=== PATIENT | female | born 1980 | race Caucasian/White ===

== ENCOUNTER 2016-07-24 09:53 | Outpatient (CLI) | payer OTHER ==
[~2016-07-24] VITALS: Ht 162.6 cm; Wt 80.0 kg
[2016-07-24 10:20] LABS: URINE BLOOD (Dip) POC Trace-intact (NEGATIVE)
[2016-07-24 10:26] VITALS: RESP 19; Ht 162.6 cm; Wt 80.0 kg
--- NOTE | 2016-07-24 11:03 | RADRPT ---
PROCEDURE: US OB biophysical profile. Ultrasound cervix CLINICAL INDICATION: decreased movements, PTL TECHNIQUE: Multiple sonographic images of the pelvis were obtained. In addition, transvaginal мария ges of the cervix were obtained. The images were reviewed on a PACS workstation. COMPARISON: No prior studies are available for comparison. FINDINGS: The cervix measures 3.5 cm in length and is closed. There is a single viable intrauterine gestation. Cardiac activity is present with 138 beats per min cheesh-na. There is a vertex presentation. The placenta is posterior. There is no evidence of placental abruption. There is a normal amount of amniotic fluid with an TOPHER = 12.1 cm. Biophysical profile: movement 2/2 tone 2/2. breathing 2/2 TOPHER 2/2 Total 10/10 RPTAT: AA . IMPRESSION: Normal biophysical profile. Cervix measures 3.5 cm in length. . .Juan J Lyn MD, MD Date Time Electronically viewed and signed by .Juan J Lyn MD, MD on 07/24/2016 11:02 .S/
[2016-07-24] MEDS ORDERED: LACTATED RINGER'S 1,000 ML IV ONE (11:15)
[2016-07-24] MEDS ORDERED: TERBUTALINE 1 MG/ML INJ SC ONE (11:15)
--- NOTE | 2016-07-24 13:19 | PN ---
Date/Time of Note Date/Time of Note DATE: 07/24/16 TIME: 13:15 OB Subjective Subjective Subjective Patient is a 35-year-old 6 para 3 at 30+5 weeks of gestation Patient presents with complaint of contractions She reports positive movement, no leaking fluid, no vaginal bleeding Her care has been with Dr. Martinez OB Objective Objective Objective PROCEDURE: US OB biophysical profile. Ultrasound cervix CLINICAL INDICATION: decreased movements, PTL TECHNIQUE: Multiple sonographic images of the pelvis were obtained. In addition, transvaginal images of the cervix were obtained. The images were reviewed on a PACS workstation. COMPARISON: No prior studies are available for comparison. FINDINGS: The cervix measures 3.5 cm in length and is closed. There is a single viable intrauterine gestation. Cardiac activity is present with 138 beats per minute. There is a vertex presentation. The placenta is posterior. There is no evidence of placental abruption. There is a normal amount of amniotic fluid with an TOPHER = 12.1 cm. Biophysical profile: movement 2/2 tone 2/2. breathing 2/2 TOPHER 2/2 Total 10/10 RPTAT: AA . IMPRESSION: Normal biophysical profile. Cervix measures 3.5 cm in length. . .Juan J Lyn MD, MD Date Time Electronically viewed and signed by .Juan J Lyn MD, on 07/24/2016 11: 02 .S/ CC: KARLA MARTINEZ MD HEENT: WNL Heart: Rhythm Normal Lungs: Clear, Equal Abdomen: WNL Extremities: Normal Reflexes: Normal Cervical Dilatation: None Heart Rate: 140's Accelerations: Accelerations Present Decelerations: No Decelerations OB Assessment/Plan Other Assessment: Rule out labor Other plan: Patient received IV fluid Patient received 1 dose of terbutaline Cervical length within normal limits Biophysical profile 8 out of 8 UA negative Patient will be discharged home today She was instructed to follow-up with Dr. Martinez today VIKTORIA CALVIN MD July 24, 2016 13:19
--- NOTE | 2016-07-24 16:13 | TRIAGE ---
OB Triage Datetime Report Generated by CPN: 07/24/2016 16:13 Datetime: 07/24/2016 12:50 Stage of : OB Triage Maternal Assessment Level of Consciousness: Fully Conscious DTR's/Clonus: DTRs 1+ Headache: Denies Breath Sounds, Left: Clear and Equal Breath Sounds, Right: Clear and Equal Nausea/Vomiting: Denies RUQ Epigastric Pain: Denies Labor Evaluation Frequency: NONE Monitor Mode: External Resting Tone [place]: Relaxed Heart Rate FHR Baseline Rate: 130 Monitor Mode: External US Variability: Moderate 6-25 bpm Accelerations: 15X15 Decelerations: None Category: Category I Pain Assessment Pain Scale: 0 Pain Presence: None/Denies Pain Type: N/A Pain Goal: 3 Vaginal Exam Membrane Status: Intact Datetime: 07/24/2016 12:30 Stage of : OB Triage Maternal Assessment Level of Consciousness: Fully Conscious DTR's/Clonus: DTRs 1+ Headache: Denies Breath Sounds, Left: Clear and Equal Breath Sounds, Right: Clear and Equal Nausea/Vomiting: Denies RUQ Epigastric Pain: Denies Labor Evaluation Frequency: NONE Monitor Mode: External Resting Tone [place]: Relaxed Heart Rate FHR Baseline Rate: 130 Monitor Mode: External US Variability: Moderate 6-25 bpm Accelerations: 15X15 Decelerations: None Category: Category I Pain Assessment Pain Scale: 0 Pain Presence: None/Denies Pain Type: N/A Pain Goal: 3 Vaginal Exam Membrane Status: Intact Datetime: 07/24/2016 12:00 Maternal Assessment Level of Consciousness: Fully Conscious DTR's/Clonus: DTRs 1+ Headache: Denies Blurred Vision: No Respiratory Effort: Unlabored Breath Sounds, Left: Clear and Equal Breath Sounds, Right: Clear and Equal Nausea/Vomiting: Denies RUQ Epigastric Pain: Denies Facial Edema: None Labor Evaluation Frequency: NONE Monitor Mode: External Resting Tone [place]: Relaxed Heart Rate FHR Baseline Rate: 130 Monitor Mode: External US Variability: Moderate 6-25 bpm Accelerations: 15X15 Decelerations: None Category: Category I Pain Assessment Pain Scale: 0 Pain Presence: None/Denies Pain Type: N/A Pain Goal: 3 Pain Assessment Comments: PT STATES FEELIN GPRESSURE ON HER LOWER ABDOMEN BUT DENIES PAIN AT THSI TIME Vaginal Exam Membrane Status: Intact Datetime: 07/24/2016 11:28 Headache: Denies Blurred Vision: No RUQ Epigastric Pain: Denies Facial Edema: None Labor Evaluation Frequency: 5-6 Duration (sec)2399: 50 Heart Rate FHR Baseline Rate: 130 Monitor Mode: External US FHR Baseline Changes: No Baseline Change Variability: Moderate 6-25 bpm Accelerations: 15X15 Decelerations: None Category: Category I Pain Assessment Pain Scale: 4 Pain Presence: Intermittent Pain Type: Cramping; Contraction Pain Location: Abdomen Vaginal Exam Membrane Status: Intact Datetime: 07/24/2016 10:42 Maternal Assessment Level of Consciousness: Fully Conscious DTR's/Clonus: DTRs 1+ Headache: Denies Blurred Vision: No Respiratory Effort: Unlabored Breath Sounds, Left: Clear and Equal Breath Sounds, Right: Clear and Equal Nausea/Vomiting: Denies RUQ Epigastric Pain: Denies Facial Edema: None Labor Evaluation Frequency: 2-5 Monitor Mode: External Duration (sec)2399: 60-70 Quality: Mild Pattern: Normal: <= 5 Contractions in 10 Minutes Resting Tone [place]: Relaxed Heart Rate FHR Baseline Rate: 135 Monitor Mode: External US Variability: Moderate 6-25 bpm Accelerations: 15X15 Decelerations: None Category: Category I Pain Assessment Pain Scale: 6 Pain Presence: Intermittent Pain Type: Cramping Pain Location: Abdomen Pain Goal: 3 Pain Relief Measures: Comfort Measures Vaginal Exam Membrane Status: Intact Datetime: 07/24/2016 10:23 EGA: 30.5 Datetime: 07/24/2016 09:50 Stage of : OB Triage Time of Arrival: 07/24/2016 09:50 Arrived By: Ambulatory Arrived From: Home Chief Complaint: PT CAME IN C/O UC'S AND CRAMPING Movement: Present Contractions: Denies/Absent Rupture of Membranes: Denies Vaginal Discharge: Denies Recent Sexual Intercouse: Denies Abdominal Trauma: Not Applicable Additional Patient Complaints: NONE Time Provider Notified: 07/24/2016 09:50 Provider Notified: MICHELLE Initial Plan: CX LENGHT, BPP, TOPHER, UA, IV, TERBUTALINE
== END 2016-07-24 13:00 | disposition home or self-care (01) ==
LOC: OBT 09:53 → L-D 09:53 → OBT 13:00
PROVIDERS: ATTEND Obstetrics & Gynecology
DX: O36.8130 Decreased fetal movements, third trimester, not applicable or unspecified (principal); O62.4 Hypertonic, incoordinate, and prolonged uterine contractions; Z3A.30 30 weeks gestation of pregnancy
CPT/HCPCS: 76817; 76818; 81003; 87086; 96360; 96372; J3105; J7120; Z7500; G0463

== ENCOUNTER 2016-07-29 09:56 | Outpatient (CLI) | payer OTHER ==
[~2016-07-29] VITALS: Ht 162.6 cm; Wt 87.0 kg
[2016-07-29 10:29] VITALS: Ht 162.6 cm; Wt 87.0 kg
[2016-07-29 10:30] VITALS: BP 116/72; PULSE 100; RESP 20
--- NOTE | 2016-07-29 11:57 | RADRPT ---
PROCEDURE: OB ultrasound for biophysical profile CLINICAL INDICATION: . TECHNIQUE: Multiple sonographic images of the pelvis were obtained. Transabdominal view of the gr avid uterus are available for review. The images were reviewed on a PACS workstation. COMPARISON: 07/24/2016 FINDINGS: breathing movement = 2/2 tone = 2/2 motion = 2/2 TOPHER = 2/2 TOPHER = 15.3 cm Single live intrauterine with cardiac activity. Heart rate equals 159 bpm. IMPRESSION: 1. Single viable intrauterine gestation. 2. Biophysical profile = 8/8. 3. TOPHER = 15.3 cm. RPTAT: QQ .Willie House MD, Date Time Electronically viewed and signed by .Willie House MD, on 07/29/2016 11:56 .[place]/
--- NOTE | 2016-07-29 15:19 | TRIAGE ---
OB Triage Datetime Report Generated by CPN: 07/29/2016 15:19 Datetime: 07/29/2016 10:35 Time of Arrival: 07/29/2016 10:35 EGA: 31.3 Arrived By: Ambulatory Arrived From: Home Chief Complaint: DECREASED MOCEMENT Movement: Present Contractions: Denies/Absent Rupture of Membranes: Denies Vaginal Bleeding: None Vaginal Discharge: Denies Recent Sexual Intercouse: Denies Abdominal Trauma: Not Applicable Patient Complaints: Other Provider Notified: DR MARTINEZ Initial Plan: EFM,CALL DR MARTINEZ Datetime: 07/29/2016 10:33 Maternal Assessment Level of Consciousness: Fully Conscious DTR's/Clonus: DTRs 2+; No Clonus Headache: Denies Blurred Vision: No Respiratory Effort: Unlabored; Regular Rhythm; Equal Expansion Breath Sounds, Left: Clear and Equal Breath Sounds, Right: Clear and Equal Nausea/Vomiting: Denies RUQ Epigastric Pain: Denies Facial Edema: None Temperature Route: Axillary Fall Risk Assessment History of Falling: (0) No Secondary Diagnosis: (0) No Ambulatory Aid: (0) Bedrest/Nurse Assist IV Therapy: (0) No Gait: (0) Normal/Bedrest/Immobile Mental Status: (0) Oriented to Own Ability Fall Score: 0 Fall Risk Score Definition: No Risk: No action required Datetime: 07/29/2016 10:28 Labor Evaluation Frequency: NONE AT THIS TIME Pattern: Normal: <= 5 Contractions in 10 Minutes Resting Tone [place]: Relaxed Heart Rate FHR Baseline Rate: 135 Monitor Mode: External US FHR Baseline Changes: No Baseline Change Variability: Moderate 6-25 bpm Accelerations: 15X15 Decelerations: None Category: Category I Pain Assessment Pain Scale: 0 Pain Presence: None/Denies Vaginal Exam Membrane Status: Intact Datetime: 07/24/2016 10:23 EGA: 30.5
--- NOTE | 2016-08-10 10:05 | QN ---
Documentation Comment URI ACUTE KARLA MARTINEZ MD Aug 10, 2016 10:05
== END 2016-07-29 15:15 | disposition home or self-care (01) ==
LOC: OBT 09:56 → L-D 09:56 → OBT 15:15
PROVIDERS: ATTEND Obstetrics & Gynecology
DX: O26.893 Other specified pregnancy related conditions, third trimester (principal); J06.9 Acute upper respiratory infection, unspecified; Z3A.31 31 weeks gestation of pregnancy
CPT/HCPCS: 76818; Z7500; G0463

== ENCOUNTER 2016-09-02 15:26 | Outpatient (CLI) | payer OTHER ==
[~2016-09-02] VITALS: Ht 162.6 cm; Wt 87.8 kg
[2016-09-02] MEDS ORDERED: PRENAT PO (15:43)
[2016-09-02] MEDS ORDERED: FER325 PO (15:43)
[2016-09-02 15:44] VITALS: BP 108/73; PULSE 101; Ht 162.6 cm; Wt 87.8 kg
--- NOTE | 2016-09-02 16:34 | RADRPT ---
PROCEDURE: US OB biophysical profile. CLINICAL INDICATION: evaluation, and 10 liters TECHNIQUE: Multiple sonographic images of the pelvis were obtained. The images were reviewed on a PACS workstation. COMPARISON: No prior studies are available for comparison. FINDINGS: There is a single viable intrauterine gestation. Cardiac activity is present with 131 beats per min rachel. There is a vertex presentation. The placenta is fundal. There is no evidence of placental abruption. There is a normal amount of amniotic fluid with an TOPHER = 10.0 cm. Biophysical profile: movement 2/2 tone 2/2. breathing 2/2 TOPHER 2/2 Total 10/10 RPTAT: AA . IMPRESSION: Normal biophysical profile. Physician Jessie Date Time Electronically viewed and signed by Physician Jessie on 09/02/2016 16:33 /
--- NOTE | 2016-09-02 17:10 | TRIAGE ---
OB Triage Datetime Report Generated by CPN: 09/02/2016 17:10 Datetime: 09/02/2016 16:57 Vaginal Exam Dilatation (cms): 0.0 Station: -3 Exam By: khemani Vaginal Bleeding: None Cervix, Position: Posterior Datetime: 09/02/2016 16:30 Stage of : OB Triage Maternal Assessment Level of Consciousness: Fully Conscious Labor Evaluation Frequency: NONE Monitor Mode: External Resting Tone [place]: Relaxed Heart Rate FHR Baseline Rate: 135 Monitor Mode: External US Variability: Moderate 6-25 bpm Accelerations: 15X15 Decelerations: None Pain Assessment Pain Scale: 5 Pain Presence: Constant Pain Type: Pressure Pain Location: Abdomen Pain Goal: 3 Pain Relief Measures: Comfort Measures Membrane Status: Intact Vaginal Bleeding: None Datetime: 09/02/2016 15:42 Assessment Type: Triage Maternal Assessment Level of Consciousness: Fully Conscious DTR's/Clonus: DTRs 2+; No Clonus Headache: Denies Blurred Vision: No Respiratory Effort: Unlabored; Regular Rhythm; Equal Expansion Breath Sounds, Left: Clear and Equal Breath Sounds, Right: Clear and Equal Nausea/Vomiting: Denies RUQ Epigastric Pain: Denies Lower Extremities Edema: None Degree: None Upper Extremities Edema: None Degree: None Facial Edema: None Fall Risk Assessment History of Falling: (0) No Secondary Diagnosis: (0) No Ambulatory Aid: (0) Bedrest/Nurse Assist IV Therapy: (0) No Gait: (0) Normal/Bedrest/Immobile Mental Status: (0) Oriented to Own Ability Fall Score: 0 Fall Risk Score Definition: No Risk: No action required Datetime: 09/02/2016 15:39 Time of Arrival: 09/02/2016 15:20 EGA: 36.3 Arrived By: Ambulatory Arrived From: Home Chief Complaint: PT HERE C/O UC'S SINCE 699 Movement: Present Rupture of Membranes: Denies Vaginal Discharge: Denies Recent Sexual Intercouse: Denies Abdominal Trauma: Not Applicable Additional Patient Complaints: NST/BPP/SVE Provider Notified: GHAYOORI Datetime: 09/02/2016 15:35 Monitor Mode: External Monitor Mode: External US Datetime: 07/29/2016 10:35 EGA: 31.3 Datetime: 07/29/2016 10:33 Fall Score: 0 Fall Risk Score Definition: No Risk: No action required Datetime: 07/24/2016 10:23 EGA: 30.5
--- NOTE | 2016-09-02 17:11 | PN ---
Triage Information Date/Time Weeks of Gestation 36+ : 2 Para: 1 Diabetes: none Objective Vital Signs Date Time Temp Pulse Resp B/P Pulse Ox O2 Delivery O2 Flow Rate FiO2 09/02/16 15:44 98.2 101 108/73 96 Room Air Heart Rate: 140's Exam No Cervical change CX L/C/Post NST reassuring [place] No CTXs Assessment/Plan If any CTXs any LOF any VB any decreased movments ,she will need to come back to Hospital immediately Patient is discharged with precaution. CELINA TELLEZ M.D. Sep 02, 2016 17:11
== END 2016-09-02 17:19 | disposition home or self-care (01) ==
LOC: OBT 15:26 → L-D 15:27 → OBT 17:19
PROVIDERS: ATTEND Obstetrics & Gynecology
DX: O62.9 Abnormality of forces of labor, unspecified (principal); Z3A.36 36 weeks gestation of pregnancy
CPT/HCPCS: 76818; Z7500; G0463

== ENCOUNTER 2016-09-11 20:01 | Outpatient (CLI) | payer OTHER ==
[~2016-09-11] VITALS: Ht 162.6 cm; Wt 90.0 kg
[~2016-09-11 20:01] MED LIST: FER325 PO; PRENAT PO
[2016-09-11 20:47] VITALS: Ht 162.6 cm; Wt 90.0 kg
[2016-09-11 20:48] VITALS: BP 112/74; PULSE 100; RESP 18
--- NOTE | 2016-09-11 21:25 | RADRPT ---
PROCEDURE: US OB. CLINICAL INDICATION: labor , pain TECHNIQUE: Transabdominal views of the pelvis are available for review. COMPARISON: No prior studies are available for comparison. FINDINGS: There is a single intrauterine gestation in a vertex position. The heart rate is noted at 152 bpm. The placenta is fundal. The TOPHER measures 14.8 cm. RPTAT: AA IMPRESSION: Normal TOPHER. .Juan J Lyn MD, MD Date Time Electronically viewed and signed by .Juan J Lyn MD, on 09/11/2016 21:25 .S/
[2016-09-11 22:08] LABS: ADD SCAN DIFF NO
[2016-09-11 22:11] LABS: BASOPHILS % 0.2 % (0.0-2.0); EOSINOPHILS # 0.1 10^3/ul (0.0-0.5); EOSINOPHILS % 1.6 % (0.0-7.0); HEMATOCRIT 34.1 % (37.0-47.0); HEMOGLOBIN 11.6 g/dl (12.0-16.0); LYMPHOCYTES # 0.9 10^3/ul (0.8-2.9); LYMPHOCYTES % 14.8 % (15.0-51.0); MEAN CORPUSCULAR HEMOGLOBIN 29.4 pg (29.0-33.0); MEAN CORPUSCULAR VOLUME 86.3 fl (82.0-101.0); MEAN PLATELET VOLUME 10.4 fl (7.4-10.4); MONOCYTE # 0.4 10^3/ul (0.3-0.9); MONOCYTES % 5.9 % (0.0-11.0); NEUTROPHIL # 4.8 10^3/ul (1.6-7.5); NEUTROPHILS % 76.9 % (39.0-77.0); PLATELET COUNT 241 10^3/UL (140-415); RED BLOOD COUNT 3.95 10^6/ul (4.20-5.40); RED CELL DISTRIBUTION WIDTH 13.5 % (11.5-14.5); WHITE BLOOD COUNT 6.3 10^3/ul (4.8-10.8)
[2016-09-11 22:28] LABS: INR 0.96; PROTIME 12.8 Sec (12.2-14.2)
[2016-09-11 22:29] LABS: PARTIAL THROMBOPLASTIN TIME 26.6 Sec (25.0-35.0)
[2016-09-11 22:49] LABS: ALBUMIN 3.9 g/dl (3.3-4.9); ALBUMIN/GLOBULIN RATIO 1.25; BILIRUBIN,INDIRECT 0.2 mg/dl (0-1.1); BILIRUBIN,TOTAL 0.2 mg/dl (0.2-1.3); CREATININE 0.77 mg/dl (0.44-1.00); POTASSIUM 3.8 mmol/L (3.5-5.1); URIC ACID 6.3 mg/dl (3.1-7.9)
[2016-09-11 23:01] LABS: ADD UMIC YES; UR ASCORBIC ACID NEGATIVE (NEGATIVE); UR BACTERIA FEW /HPF (NONE SEEN); UR BILIRUBIN (Dip) NEGATIVE (NEGATIVE); UR BLOOD (Dip) NEGATIVE (NEGATIVE); UR CLARITY CLOUDY (CLEAR); UR COLOR YELLOW (YELLOW); UR GLUCOSE (Dip) NEGATIVE (NEGATIVE); UR KETONES (Dip) NEGATIVE (NEGATIVE); UR LEUKOCYTE ESTERASE (Dip) 3+ Leu/ul (NEGATIVE); UR MUCUS FEW /HPF (NONE SEEN); UR NITRITE (Dip) NEGATIVE (NEGATIVE); UR RBC 2 /HPF (0-5); UR SPECIFIC GRAVITY (Dip) 1.013 (1.003-1.030); UR SQUAMOUS EPITHELIAL CELL MANY /HPF (FEW); UR TOTAL PROTEIN (Dip) NEGATIVE (NEGATIVE); UR UROBILINOGEN (Dip) NEGATIVE (NEGATIVE)
--- NOTE | 2016-09-12 06:27 | TRIAGE ---
OB Triage Datetime Report Generated by CPN: 09/12/2016 06:27 Datetime: 09/12/2016 00:48 Stage of : OB Triage Time of Arrival: 09/11/2016 20:00 EGA: 37.5 Arrived By: Wheelchair Arrived From: Home Chief Complaint: SWOLLEN FEET Movement: Present Contractions: Denies/Absent Rupture of Membranes: Denies Vaginal Bleeding: None Vaginal Discharge: Denies Recent Sexual Intercouse: Denies Abdominal Trauma: Not Applicable Patient Complaints: None Time Provider Notified: 09/11/2016 20:53 Provider Notified: DR RESTREPO Initial Plan: CALL RICHARD TEAGUE Datetime: 09/12/2016 00:30 Stage of : OB Triage Datetime: 09/12/2016 00:20 Vaginal Exam Dilatation (cms): 0.0 Effacement (%): 0 Station: -3 Exam By: Brenda AKINS RN Vaginal Bleeding: None Cervix, Consistency: Firm Cervix, Position: Posterior Datetime: 09/11/2016 23:55 Labor Evaluation Frequency: IRREGULAR Monitor Mode: External Duration (sec)2399: 60-120 Quality: Mild Pattern: Normal: <= 5 Contractions in 10 Minutes Resting Tone [place]: Relaxed Heart Rate FHR Baseline Rate: 125 Monitor Mode: External US FHR Baseline Changes: No Baseline Change Variability: Moderate 6-25 bpm Accelerations: 15X15 Decelerations: None Category: Category I Datetime: 09/11/2016 23:00 Labor Evaluation Frequency: IRREGULAR Monitor Mode: External Duration (sec)2399: 60-120 Quality: Mild Pattern: Normal: <= 5 Contractions in 10 Minutes Resting Tone [place]: Relaxed Heart Rate FHR Baseline Rate: 125 Monitor Mode: External US FHR Baseline Changes: No Baseline Change Variability: Moderate 6-25 bpm Accelerations: 15X15 Decelerations: None Category: Category I Datetime: 09/11/2016 22:55 Stage of : OB Triage Datetime: 09/11/2016 22:00 Labor Evaluation Frequency: 0 Monitor Mode: External Heart Rate FHR Baseline Rate: 135 Monitor Mode: External US FHR Baseline Changes: No Baseline Change Variability: Moderate 6-25 bpm Accelerations: 15X15 Decelerations: None Category: Category I Datetime: 09/11/2016 21:06 Stage of : OB Triage Datetime: 09/11/2016 21:05 Stage of : OB Triage Datetime: 09/11/2016 21:00 Stage of : OB Triage Labor Evaluation Frequency: X1 Monitor Mode: External Duration (sec)2399: 60 Resting Tone [place]: Relaxed Contraction Comments: PT DENIES FEELING UC'S OR CRAMPING Heart Rate FHR Baseline Rate: 125 Monitor Mode: External US Variability: Moderate 6-25 bpm Accelerations: 15X15 Decelerations: None Category: Category I Pain Assessment Pain Scale: 0 Pain Presence: None/Denies Pain Type: N/A Datetime: 09/11/2016 20:57 Time of Arrival: 09/11/2016 20:00 EGA: 37.5 Arrived By: Wheelchair Chief Complaint: SWELLING OF FEET Movement: Present Contractions: Irregular Contractions: X1 Rupture of Membranes: Denies Vaginal Bleeding: None Vaginal Discharge: Denies Recent Sexual Intercouse: Denies Abdominal Trauma: Not Applicable Patient Complaints: Other Time Provider Notified: 09/11/2016 20:53 Provider Notified: DR. GARCIA Initial Plan: EFM, CALL MD, PIH PANEL, U/S OB TOPHER Datetime: 09/11/2016 20:53 Stage of : OB Triage Datetime: 09/11/2016 20:45 Stage of : OB Triage Datetime: 09/11/2016 20:36 Contraction Comments: APPLIED Comments: APPLIED Datetime: 09/11/2016 20:30 Stage of : OB Triage Time Provider Notified: 09/11/2016 20:53 Maternal Assessment Level of Consciousness: Fully Conscious DTR's/Clonus: DTRs 2+; No Clonus Headache: Denies Blurred Vision: No Respiratory Effort: Unlabored; Regular Rhythm; Equal Expansion Breath Sounds, Left: Clear and Equal Breath Sounds, Right: Clear and Equal Nausea/Vomiting: Denies RUQ Epigastric Pain: Denies Lower Extremities Edema: Bilateral Lower Extremities Degree: 1+ Upper Extremities Edema: Bilateral Upper Extremities Degree: None Facial Edema: None Temperature Route: Oral Fall Risk Assessment History of Falling: (0) No Secondary Diagnosis: (0) No Ambulatory Aid: (0) Bedrest/Nurse Assist IV Therapy: (0) No Gait: (0) Normal/Bedrest/Immobile Mental Status: (0) Oriented to Own Ability Fall Score: 0 Fall Risk Score Definition: No Risk: No action required Pain Assessment Pain Scale: 0 Pain Presence: None/Denies Pain Type: N/A Datetime: 09/02/2016 15:42 Fall Score: 0 Fall Risk Score Definition: No Risk: No action required Datetime: 09/02/2016 15:39 EGA: 36.3 Datetime: 07/29/2016 10:35 EGA: 31.3 Datetime: 07/29/2016 10:33 Fall Score: 0 Fall Risk Score Definition: No Risk: No action required Datetime: 07/24/2016 10:23 EGA: 30.5
--- NOTE | 2016-09-19 03:45 | HP ---
DATE OF ADMISSION: 09/11/2016 DATE OF DICTATION: 09/16/2016, late entry note. CHIEF COMPLAINT: Swelling of feet. HISTORY OF PRESENT ILLNESS: The patient is 35-year-old, , para III, 0, II, III, with single intrauterine at 37 weeks and 5 days, complaining of swelling of feet. She states good movement. She denies nausea, vomiting, shortness of breath, chest pain, headache, blurry vision. Leakage of fluid, vaginal bleeding, urinary or GI symptoms. PHYSICAL EXAMINATION: GENERAL: The patient is in no acute distress. She has appropriate mood and affect. VITAL SIGNS: Blood pressure 112/72, pulse rate 83, respiratory rate 18, temperature 98.1. O2 saturation is 98 percent. HEART: Regular rhythm and rate. No murmur. LUNGS: Clear to auscultation bilaterally. ABDOMEN: Soft. Nontender. No rebound or guarding. Uterine fundal height is 38 weeks. BACK: No CVA tenderness bilateral. EXTREMITIES: 2+ edema. No varicose veins, thigh or calf tenderness. Homans' sign is negative bilaterally. ASSESSMENT AND PLAN: The patient is a 35-year-old , Para III, 0, II, III with single intrauterine at 37 weeks and 5 days, with swelling of the feet. Her blood pressure was normal. All her blood pressures during triage observation were normal, the labs performed were normal. Ultrasound performed revealed a single intrauterine in cephalic presentation. TOPHER of 14.8. Signs and symptoms of early labor preeclampsia, kick count was discussed with the patient. She expressed understanding, all of her questions were answered. She is discharged home in stable condition. Follow up with her primary [facility]. Dictated By: Bassam Pretty MD /[email or web address] /Document#: [id number] EDWIN
== END 2016-09-12 02:53 | disposition home or self-care (01) ==
LOC: OBT 20:01 → L-D 20:01 → OBT 09-12 02:53
PROVIDERS: ATTEND Obstetrics & Gynecology
DX: O26.893 Other specified pregnancy related conditions, third trimester (principal); Z3A.37 37 weeks gestation of pregnancy; R22.43 Localized swelling, mass and lump, lower limb, bilateral
CPT/HCPCS: 36415; 76815; 80053; 81001; 84560; 85025; 85384; 85610; 85730; Z7500; G0463

== ENCOUNTER 2016-09-19 05:40 | Inpatient (IN) | payer OTHER ==
[2016-09-19] VITALS (7 sets, daily range): BP systolic 112–123; BP diastolic 60–83; PULSE 80–125; RESP 18; Ht 162.6 cm; Wt 91.1 kg
[~2016-09-19] VITALS: Ht 162.6 cm; Wt 91.1 kg
[2016-09-19 06:41] LABS: ADD SCAN DIFF NO
[2016-09-19 06:52] LABS: BASOPHILS % 0.1 % (0.0-2.0); EOSINOPHILS # 0.1 10^3/ul (0.0-0.5); EOSINOPHILS % 1.5 % (0.0-7.0); HEMOGLOBIN 11.8 g/dl (12.0-16.0); LYMPHOCYTES # 1.1 10^3/ul (0.8-2.9); LYMPHOCYTES % 16.7 % (15.0-51.0); MEAN CORPUSCULAR HEMOGLOBIN 29.9 pg (29.0-33.0); MEAN CORPUSCULAR HGB CONC 34.7 g/dl (32.0-37.0); MEAN CORPUSCULAR VOLUME 86.1 fl (82.0-101.0); MEAN PLATELET VOLUME 9.8 fl (7.4-10.4); MONOCYTE # 0.4 10^3/ul (0.3-0.9); MONOCYTES % 6.6 % (0.0-11.0); NEUTROPHILS % 74.5 % (39.0-77.0); PLATELET COUNT 240 10^3/UL (140-415); RED BLOOD COUNT 3.95 10^6/ul (4.20-5.40); RED CELL DISTRIBUTION WIDTH 13.4 % (11.5-14.5); WHITE BLOOD COUNT 6.7 10^3/ul (4.8-10.8)
[2016-09-19] MEDS ORDERED: CEFAZOLIN 2 GM/50 ML (PMX) 50 ML IV SCH (07:00)
[2016-09-19] MEDS ORDERED: CARBOPROST 250 MCG INJ IM PRN ×2 (07:00→13:00)
[2016-09-19] MEDS ORDERED: OXYTOCIN 30 UNITS/LR 500 ML IV PRN ×2 (07:00→13:00)
[2016-09-19] MEDS ORDERED: METHYLERGONOVINE 0.2 MG INJ IM PRN ×2 (07:00→13:00)
[2016-09-19] MEDS ORDERED: MISOPROSTOL 200 MCG TAB PR PRN ×2 (07:00→13:00)
[2016-09-19] MEDS ORDERED: OXYTOCIN 30 UNITS/LR 500 ML IV SCH (07:00)
[2016-09-19] MEDS ORDERED: LACTATED RINGER'S 1,000 ML IV ONE (07:00)
[2016-09-19 07:05] LABS: INR 0.86; PARTIAL THROMBOPLASTIN TIME 25.7 Sec (25.0-35.0); PROTIME 11.7 Sec (12.2-14.2); PT RATIO 0.9
[2016-09-19] MEDS ORDERED: morphine SULFATE/PF (10 MG/10 ML) INJ ONE (07:49)
[2016-09-19] MEDS ORDERED: OXYTOCIN 30 UNITS/LR 500 ML IV ONE (07:50)
[2016-09-19] MEDS ORDERED: FENTAnyl 50 MCG/ML VIAL ONE (07:50)
[2016-09-19] MEDS ORDERED: KETOROLAC 30 MG INJ IV PRN (08:00)
[2016-09-19] MEDS ORDERED: ONDANSETRON 4 MG INJ IV PRN (08:00)
[2016-09-19] MEDS ORDERED: DIPHENHYDRAMINE 50 MG INJ IV PRN (08:00)
[2016-09-19] MEDS ORDERED: NALOXONE (0.4 MG/ML) INJ IV PRN (08:00)
[2016-09-19] MEDS ORDERED: ZOLPIDEM 5 MG TAB PO PRN (08:00)
[2016-09-19] MEDS ORDERED: HYDROmorphONE 1 MG/ML SYG IV PRN ×2 (08:00)
[2016-09-19] MEDS ORDERED: PHENYLephrine (100 MCG/ML) 5ML SYG ONE (08:11)
[2016-09-19] MEDS ORDERED: DEXAMETHASONE 4 MG/ML 1 ML INJ ONE (08:13)
--- NOTE | 2016-09-19 10:11 | HP ---
Date/Time of Note Date/Time of Note DATE: 09/19/16 TIME: 10:02 OB - History Hx of Present Free Text/Dictation 35 y.o G^ at 39weeks with X2 vaginal delivery and x1 section here for repeat esarean section electively had unevenful course. consent for surgery obtained after fully informed the poss complication s minor to serious from sugery and aneshesia. patient agreed to receive surgical procedure after fully understand. repeat c/s was prepared Chief Complaint: for repeat section Estimated Due Date: Sep 27, 2016 : 6 Para: 3 Spontaneous : 2 Therapeutic : 0 Care: Good Care Ultrasounds: Normal mid trimester US Obstetrical Complications: None Medical Complications: None Past Family/Social History * Past Medical, Surgical, Family and Obstetric Histories reviewed from chart. Blood Type: O+ Rubella: immune RPR/VDRL: Negative GBS Status: Negative HBsAG: Negative OB Admission Exam Vital Signs Vital Signs Vital Signs Date Time Temp Pulse Resp B/P Pulse Ox O2 Delivery O2 Flow Rate FiO2 09/19/16 06:36 97.9 94 18 112/78 Room Air Physical Exam HEENT: WNL Heart: Rhythm Normal Lungs: Clear, Equal Abdomen: WNL Extremities: Normal Reflexes: Normal Cervical Dilatation: other Station: Other Membranes: Intact Amniotic Fluid: Unevaluable Heart Rate: 140's Accelerations: Accelerations Present Decelerations: No Decelerations Varibility: Moderate Intensity: Mild Last 72 hours Lab Results CBC & BMP 09/19/16 06:20 OB Assessment/Plan Reason for admission: section Plan: Section KARLA MARTINEZ MD Sep 19, 2016 10:10
[2016-09-19] MEDS ORDERED: LANOLIN 7 GM TUBE TOP PRN (13:00)
[2016-09-19] MEDS: LACTATED RINGER'S 1,000 ML IV SCH (15:24)
[2016-09-19] MEDS: SENNA/DOCUSATE NA (8.6MG/50MG) TAB PO SCH (21:33)
[2016-09-20] MEDS: LACTATED RINGER'S 1,000 ML IV SCH ×2 (02:01→07:30)
[2016-09-20 03:45] VITALS: BP 100/58; PULSE 96; RESP 18
[2016-09-20] MEDS: IBUPROFEN 600 MG TAB PO SCH ×3 (06:00→17:53)
[2016-09-20 08:00] VITALS: BP 121/71; PULSE 76; RESP 18
[2016-09-20] MEDS ORDERED: ONDANSETRON 4 MG INJ IV PRN (08:05)
[2016-09-20] MEDS ORDERED: DIPHENHYDRAMINE 50 MG INJ IV PRN (08:05)
[2016-09-20] MEDS ORDERED: OXYCODONE/ACETAMINOPHEN (5/325) TAB PO PRN (08:05)
[2016-09-20 08:32] LABS: ADD SCAN DIFF NO
[2016-09-20 08:38] LABS: BASOPHILS % 0.1 % (0.0-2.0); EOSINOPHILS # 0.1 10^3/ul (0.0-0.5); EOSINOPHILS % 0.9 % (0.0-7.0); HEMOGLOBIN 9.5 g/dl (12.0-16.0); LYMPHOCYTES % 11.6 % (15.0-51.0); MEAN CORPUSCULAR HEMOGLOBIN 29.5 pg (29.0-33.0); MEAN CORPUSCULAR HGB CONC 33.9 g/dl (32.0-37.0); MEAN PLATELET VOLUME 9.8 fl (7.4-10.4); MONOCYTE # 0.5 10^3/ul (0.3-0.9); MONOCYTES % 5.4 % (0.0-11.0); NEUTROPHIL # 7.2 10^3/ul (1.6-7.5); NEUTROPHILS % 81.2 % (39.0-77.0); PLATELET COUNT 179 10^3/UL (140-415); RED BLOOD COUNT 3.22 10^6/ul (4.20-5.40); RED CELL DISTRIBUTION WIDTH 13.6 % (11.5-14.5); WHITE BLOOD COUNT 8.9 10^3/ul (4.8-10.8)
--- NOTE | 2016-09-20 09:58 | OPR ---
Operative Report Planned Procedure Procedure date Sep 19, 2016 Procedure(s) repeat low transverse section Performed by: KARLA MARTINEZ MD Assisting provider: THERON TORRES MD Anesthesiologist: KIM DAMIAN Pre-procedure diagnosis IUP 39w with previous section Anesthesia Type: spinal Procedure Description Under satisfactory [] anesthesia, the patient was prepped and draped and placed in a supine position, tilted to the left. Pfannenstiel incision was made,along the previous incisional scar, scar tissue was excised, carried through the subcutaneous tissue. Bleeders brought under control with electrocautery. Fascia incised to the length of the incision. Rectus muscles from the fascia , divided midline. Peritoneum exposed, entered through a transverse incision. Exploration of abdomen revealed gravid uterus. transverse incision was made on the uterine muscle layer by layer ,. Amniotic sac ruptured. [] clear amniotic fluid noted. [] Nasal oropharyngeal suction was performed. The baby was handed to the team for immediate attention after delayed cord clamping.. The placenta was delivered manually intact, uterus was exteriolized, . Uterine cavity was cleaned with wet sponge and drainage established. Uterus closed in 2 layers using [#1 ch cat gut and 0 ch cat gut] in continuous fashion. Peritoneal cavity irrigated with warm saline.uterus was relocated into the abdominal cavity, uterine incision was rechecked for bleeder Sponge, needle and instrument count reported to be correct. Abdominal peritoneum closed [id number] cat gut [] continuously. Rectus muscle approximated with [0ch cat gut ] . Fascia closed with #1 vicryl, subcut closed )) plain ], and skin closed with insorb Estimated blood loss []600mL. Urine bag contained 200[]mL of urine Post-Procedure Post-procedure diagnosis delivered normal male Findings: Live Baby [, Apgars [8] and [9], weight [], position []lot, [] presentation [vx] cord. Specimen removed: No Complications: None Pt Condition post procedure: stable Disposition: PACU Physician Certification I, the undersigned physician, hereby certify that I have discussed the procedure described in this consent form with this patient (or the patient's legal patient financial representative), including: * The risk and benefits of the procedure; * Any adverse reactions that may reasonably be expected to occur; * Any alternative efficacious methods of treatment which may be medically viable ; * The potential problems that may occur during recuperation; * Potential for blood transfusion and associated risks/benefits; and * Any research or economic interest I may have regarding this treatment. I further certify that the patient/legally responsible person was encouraged to ask question and that all questions were answered. KARLA MARTINEZ MD Sep 20, 2016 09:57
--- NOTE | 2016-09-20 10:43 | PN ---
Date/Time of Note Date/Time of Note DATE: 09/20/16 TIME: 10:39 OB Subjective Subjective Subjective passing flatus decide not to breast feeding OB Objective Objective Objective vss afebrile abdomen soft wound dry calf neg for tenderness HEENT: WNL Heart: Rhythm Normal Lungs: Clear, Equal Abdomen: WNL Extremities: Normal Reflexes: Normal OB Assessment/Plan Other Assessment: s/p #1 rc/s Other plan: as ordered KARLA MARTINEZ MD Sep 20, 2016 10:42
[2016-09-20] MEDS: SENNA/DOCUSATE NA (8.6MG/50MG) TAB PO SCH ×2 (10:50→21:16)
[2016-09-20] MEDS: OXYCODONE/ACETAMINOPHEN (5/325) TAB PO PRN (10:51)
[2016-09-20 16:00] VITALS: BP 118/82; PULSE 106; RESP 18
[2016-09-20 19:45] VITALS: BP 112/73; PULSE 101; RESP 18
[2016-09-20] MEDS ORDERED: ZOLPIDEM 5 MG TAB PO PRN (21:00)
[2016-09-21] MEDS: IBUPROFEN 600 MG TAB PO SCH ×5 (00:22→23:38)
[2016-09-21 04:30] VITALS: BP_SYST 117; BP_SYST 97; BP_DIAS 55; BP_DIAS 70; PULSE 85; PULSE 92; RESP 18
--- NOTE | 2016-09-21 07:54 | PN ---
Date/Time of Note Date/Time of Note DATE: 09/21/16 TIME: 07:51 OB Subjective Subjective Subjective no specific c/o OB Objective Objective Objective vss afebrile abdomen soft wound dry lochia min calf no tenderness OB Assessment/Plan Other Assessment: stable POrc/s#2 Other plan: d/s home in am KARLA MARTINEZ MD Sep 21, 2016 07:53
[2016-09-21 08:45] VITALS: BP 93/51; PULSE 80; RESP 18
[2016-09-21] MEDS: SENNA/DOCUSATE NA (8.6MG/50MG) TAB PO SCH ×2 (10:26→20:35)
[2016-09-21 16:30] VITALS: BP 124/79; PULSE 96; RESP 16
[2016-09-21] MEDS: FERROUS GLUCONATE (EC) 325 MG TAB PO SCH (17:17)
[2016-09-21 19:45] VITALS: BP 107/77; PULSE 94; RESP 18
[2016-09-22] MEDS: OXYCODONE/ACETAMINOPHEN (5/325) TAB PO PRN ×2 (03:26→15:04)
[2016-09-22 03:30] VITALS: BP 93/66; PULSE 73; RESP 18
[2016-09-22] MEDS: IBUPROFEN 600 MG TAB PO SCH ×3 (05:59→18:00)
[2016-09-22 08:00] VITALS: BP 92/70; PULSE 68; RESP 19
[2016-09-22] MEDS: SENNA/DOCUSATE NA (8.6MG/50MG) TAB PO SCH (09:00)
[2016-09-22] MEDS ORDERED: DIPHTH/TET/ACEL PERTUSS (ADULT) 0.5 ML VIAL IM* ONE (09:00)
[2016-09-22] MEDS: FERROUS GLUCONATE (EC) 325 MG TAB PO SCH (10:13)
--- NOTE | 2016-09-22 16:13 | DS ---
Date/Time of Note Date/Time of Note DATE: 09/22/16 TIME: 16:11 Obstetrical Discharge Record Final Diagnosis Final Diagnosis: Term delivered Section Section: Repeat Complications Augmentation: No Induction: No Condition on Discharge Physical Assessment Last Vitals: vss afebrile Voiding: Yes Breast: Soft, non-tender Fundus: Firm Abdomen and Incision: abdomen soft wound dry Calf Tenderness: No Patient Condition: Stable KARLA MARTINEZ MD Sep 22, 2016 16:12
--- NOTE | 2016-09-22 16:18 | PD.PPDC ---
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
== END 2016-09-22 18:35 | disposition home or self-care (01) | DRG 766 ==
LOC: L-D 05:40 → PP1 12:51
PROVIDERS: ADMIT Obstetrics & Gynecology; ATTEND Obstetrics & Gynecology
PROC: 10D00Z1 Extraction of Products of Conception, Low, Open Approach (ICD-10-PCS; principal; 2016-09-19 07:30)
PROC: 3E00X4Z Introduction of Serum, Toxoid and Vaccine into Skin and Mucous Membranes, External Approach (ICD-10-PCS; 2016-09-22)
DX: O34.211 Maternal care for low transverse scar from previous cesarean delivery (principal); Z23 Encounter for immunization; Z3A.39 39 weeks gestation of pregnancy; Z37.0 Single live birth
CPT/HCPCS: 85025; 85610; 85730; 86592; 86850; 86900; 86901; 87340; 90715; 94760; 99464; J0690; J1100; J1200; J1885; J2274; J2370; J2405; J2590; J3010; J7120